=== PATIENT | female | born 1985 | race Caucasian/White ===

== ENCOUNTER 2020-07-05 11:07 | Emergency (ER) | payer OTHER ==
[2020-07-05 11:21] VITALS: BP 134/81; PULSE 91; TEMP 97.4; BMI 26.2
--- NOTE | 2020-07-05 11:53 | PDOC ---
History of Present Illness - General Chief Complaint: Pain Stated Complaint: PAIN Time Seen by Provider: 07/05/20 11:25 History Source: Patient Exam Limitations: No Limitations - History of Present Illness Initial Comments: 07/05/20 11:46 Patient is a 34-year-old female with no past medical history presents to the ED with complaint of left breast pain that has been ongoing for last 3 years. She states it has gotten much worse recently. She denies any drainage from her nipple. She denies any fevers or chills. She is not breast-feeding and denies currently being . She states she has never gotten this checked out in the past but the pain has become so bad so she came to the ED for evaluation. She denies any redness to the breast that she has noticed. She denies any allergies to medications. Past History - Medical History Allergies/Adverse Reactions: Allergies Allergy/AdvReac Type Severity Reaction Status Date / Time No Known Allergies Allergy Verified 07/05/20 11:16 Home Medications: Ambulatory Orders Ibuprofen [Motrin -] 600 mg PO TID PRN #21 tablet 07/05/20 COPD: No Other medical history: DENIES - Reproductive History Is Patient Now?: No - Psycho-Social/Smoking History Smoking History: Current every day smoker Information on smoking cessation initiated: No - Substance Abuse Hx (Audit-C & DAST Scrn) How often the patient has a drink containing alcohol: Never Score: In Men: 4 or > Positive; In Women: 3 or > Positive: 0 Screen Result (Pos requires Nsg. Audit-10AR): Negative In the last yr the pt used illegal drug/Rx for NonMed reason: No Score: Yes response is considered Positive: 0 Screen Result (Positive result requires Nsg. DAST-10): Negative Review of Systems - Review of Systems Comments:: 07/05/20 11:47 - Review of Systems Able to Perform ROS?: Yes Constitutional: No: Fever, Chills, Loss of Appetite, Night Sweats, Weakness HEENTM: No: Eye Pain, Vision changes, Ear Pain, Throat Pain, Throat Swelling, Mouth Pain, Difficulty Swallowing Respiratory: No: Cough, Shortness of Breath, Wheezing, Sputum Production Cardiac (ROS): No: Chest Pain, Chest Tightness, Palpitations, Irregular Heart Beat, Edema Breast: Left breast pain without discharge ABD/GI: No: Nausea, Vomiting, Abdominal Pain, Diarrhea : No Dysuria, No Hematuria, No Frequency, No Urgency Integumentary: No: Lesions, Rash Neurological: No: Headache, Numbness, Tingling, Weakness, Speech Difficulties *Physical Exam - Vital Signs Last Vital Signs Temp Pulse Resp BP Pulse Ox 97.4 F L 91 H 20 134/81 100 07/05/20 11:17 07/05/20 11:17 07/05/20 11:17 07/05/20 11:17 07/05/20 11:17 - Physical Exam 07/05/20 11:47 - Physical Exam General Appearance: Nourished, Appropriately Dressed, No Distress HEENT: EOMI, Normal Voice, Hearing Grossly Normal Neck: Supple, No Lymphadenopathy (R), No Lymphadenopathy (L), No Rigidity, No Decreased range of motion Respiratory/Chest: Lungs Clear, Normal Breath Sounds. No Respiratory Distress, No Accessory Muscle Use, no flail chest Cardiovascular: Regular Rhythm, Regular Rate, S1, S2 Breast: Left breast tenderness from ~2 o'clock to 5 o'clock region and enxtending into the axila. There is lateral rib tenderness in the anterior axillary line as well without any step-off, crepitus or ecchymosis. No drainage appreciated from the nipple. No cellulitis appreciated. Gastrointestinal/Abdominal: Normal Bowel Sounds, Soft. Non-tender, No Guarding, No Rebound, No Rigidity Musculoskeletal: Normal Inspection. No Decreased Range of Motion Extremity: Normal Capillary Refill, Normal Inspection Integumentary: Normal Color, Dry. No Rash Neurologic: tool and die repair II-XII NML intact, Fully Oriented, Alert, Normal Mood/Affect, Normal Response ED Treatment Course - RADIOLOGY Radiology Studies Ordered: Category Date Time Status BREAST US LEFT COMPLETE [US] Routine Ultrasound 07/05/20 11:35 Ordered Medical Decision Making - Medical Decision Making 07/05/20 11:53 Assessment: Patient is a 34-year-old female with left breast tenderness that has been ongoing for the last 3 years but worsening over the last several weeks. Plan: -Left breast ultrasound ordered -UA, urine ordered -Will reassess 07/05/20 12:19 Laboratory Tests 07/05/20 11:15 Urine Color Yellow Urine Appearance Cloudy Urine pH 5.5 Ur Specific [place] 1.026 Urine Protein Negative Urine Glucose (UA) Negative Urine Ketones Trace H Urine Blood 1+ H Urine Nitrite Negative Urine Bilirubin Negative Urine Urobilinogen 0.2 Ur Leukocyte Esterase Negative Urine WBC (Auto) 14 Urine Casts (Auto) 2 U Epithel Cells (Auto) >36 Urine Bacteria (Auto) 660 Urine HCG, Qual Negative The patient's ultrasound is negative for acute pathology. I have made the patient aware that her ultrasound is negative but we are unsure of the reason behind her breast pain. I have made her aware that she must follow-up with WEALTH MANAGEMENT DIRECTOR for further evaluation and treatment and likely an outpatient mammogram. The patient will be referred to WEALTH MANAGEMENT DIRECTOR. She understands and agrees with this treatment plan and she is stable for discharge. Discharge - Discharge Information Problems reviewed: Yes Clinical Impression/Diagnosis: Breast pain, left Condition: Stable Disposition: HOME - Additional Discharge Information Prescriptions: Ibuprofen [Motrin -] 600 mg PO TID PRN #21 tablet PRN Reason: Pain - Follow up/Referral Referrals: Adams Olvera MD [Staff Physician] - 1 week - Patient Discharge Instructions Patient Printed Discharge Instructions: DI for Breast Pain (Mastalgia) Additional Instructions: Your ultrasound was negative for any acute pathology. It is uncertain why you are continuing to have left breast pain but this must be further evaluated by an WEALTH MANAGEMENT DIRECTOR. There was no sign of infection or obvious mass on the ultrasound. You may require an outpatient mammogram but you must be reevaluated by WEALTH MANAGEMENT DIRECTOR. Take Motrin as needed for pain. Avoid any heavy lifting or strenuous activity. [place] ecografa fue negativa para cualquier patologa aguda. No se sabe por qu sigue teniendo dolor en el seno emeka, ryan un obstetra / gineclogo debe evaluarlo ms a fondo. No haba signos de infeccin o masa obvia en la ecografa. Es posible que necesite astrid mamografa ambulatoria, ryan debe ser reevaluada por un obstetra / gineclogo. [place] Motrin segn sea necesario para el dolor. Evite levantar objetos pesados ??o realizar actividades extenuantes. - Post Discharge Activity
[2020-07-05 11:58] LABS: EPI CELLS >36 /uL (0-25.1); HYALINE CASTS 2 /uL (0-3.1); PH,URINE 5.5 (5.0-8.0); URINE APPEARANCE CLOUDY; URINE BACTERIA 660 /uL (0-1359); URINE BILIRUBIN NEGATIVE (NEGATIVE); URINE COLOR YELLOW; URINE GLUCOSE (UA) NEGATIVE (NEGATIVE); URINE KETONE TRACE (NEGATIVE); URINE LEUK ESTERASE NEGATIVE (NEGATIVE); URINE NITRITE NEGATIVE (NEGATIVE); URINE PROTEIN NEGATIVE (NEGATIVE); URINE UROBILINOGEN 0.2 mg/dL (0.2-1.0); URINE WBC 14 /uL (0-25.8)
[2020-07-05 11:59] LABS: HCG,QUALITATIVE URINE Negative
[2020-07-05] MEDS ORDERED: IBUPROFEN 600 MG TABLET (FP) PO ONE ×2 (12:19→12:33)
[2020-07-05 12:54] LABS: URINE RBC 10 /uL (0-23.9); YEAST NON SEEN (NEGATIVE)
== END 2020-07-05 13:26 | disposition home or self-care (01) ==
LOC: JERFT 11:07
DX: N64.4 Mastodynia (principal)
CPT/HCPCS: 76641-TC-LT; 81003; 84703; 99284-25

== ENCOUNTER 2021-06-27 10:50 | Emergency (ER) | payer OTHER ==
[2021-06-27 11:32] VITALS: BP 112/71; PULSE 79; TEMP 98; BMI 28.3
[2021-06-27 12:26] LABS: PH,URINE 5.5 (5.0-8.0); URINE APPEARANCE CLEAR; URINE BILIRUBIN NEGATIVE (NEGATIVE); URINE COLOR YELLOW; URINE GLUCOSE (UA) NEGATIVE (NEGATIVE); URINE KETONE NEGATIVE (NEGATIVE); URINE LEUK ESTERASE NEGATIVE (NEGATIVE); URINE NITRITE NEGATIVE (NEGATIVE); URINE PROTEIN NEGATIVE (NEGATIVE); URINE UROBILINOGEN 0.2 mg/dL (0.2-1.0)
[2021-06-27 12:28] LABS: HCG,QUALITATIVE URINE Negative
== END 2021-06-27 14:20 | disposition home or self-care (01) ==
LOC: JER 10:50
DX: N83.201 Unspecified ovarian cyst, right side (principal)
CPT/HCPCS: 76830-TC; 81003; 84703; 87086; 99284-25

== ENCOUNTER 2022-08-17 20:49 | Emergency (ER) | payer OTHER ==
[2022-08-17 21:05] VITALS: BP 125/78; PULSE 66; RESP 19; TEMP 98.4; BMI 30.1
[2022-08-17] MEDS ORDERED: ACETAMINOPHEN 500 MG TABLET (FP) PO ONE (21:33)
[2022-08-17] MEDS ORDERED: IBUPROFEN 600 MG TABLET (FP) PO ONE ×2 (21:33→21:35)
[2022-08-17] MEDS ORDERED: ACETAMINOPHEN 500 MG TABLET (FP) ONE (21:36)
== END 2022-08-17 23:11 | disposition home or self-care (01) ==
LOC: JER 20:49
DX: R51.9 Headache, unspecified (principal); R09.81 Nasal congestion
CPT/HCPCS: 0241U-QW; 71046-TC-FY; 99284-25

== ENCOUNTER 2024-06-12 20:36 | Emergency (ER) | payer OTHER ==
[2024-06-12 20:41] VITALS: BP 117/78; PULSE 82; RESP 18; TEMP 97.5; BMI 28.0
[2024-06-12] MEDS ORDERED: morphine SULFATE 4 MG/ML VIAL ONE (22:21)
[2024-06-12] MEDS ORDERED: ONDANSETRON 4 MG/2 ML VIAL ONE (22:22)
[2024-06-12 22:56] LABS: BASO % 0.3 % (0-2.0); EOS % 3.6 % (0-4.5); HEMATOCRIT 41.2 % (32.4-45.2); HEMOGLOBIN 14.1 GM/dL (10.7-15.3); LYMPH % 20.6 % (8-40); MCH 31.8 pg (25.7-33.7); MCHC 34.2 g/dl (32.0-36.0); MEAN CELL VOLUME 93.1 fl (80-96); MEAN PLT VOLUME 7.4 fl (7.5-11.1); MONO % 7.5 % (3.8-10.2); PLATELET COUNT 267 10^3/uL (134-434); RBC 4.43 M/mm3 (3.60-5.2); RDW 13.5 % (11.6-15.6)
[2024-06-12] MEDS: ONDANSETRON 4 MG/2 ML VIAL IVPUSH ONE (23:05)
[2024-06-12] MEDS: morphine CARPU-JECT 4 MG/1 ML DISP.SYRIN IVPUSH ONE (23:05)
[2024-06-12 23:17] LABS: CALCIUM 9.1 mg/dL (8.5-10.1)
[2024-06-12 23:18] LABS: ALBUMIN 3.7 g/dl (3.4-5.0); BLOOD UREA NITROGEN 15.6 mg/dL (7-18)
[2024-06-12 23:21] LABS: CREATININE 0.8 mg/dL (0.55-1.3)
[2024-06-12 23:22] LABS: BILIRUBIN,TOTAL 0.5 mg/dL (0.2-1); TOT PROT 7.2 g/dl (6.4-8.2)
[2024-06-13 00:17] LABS: URINE APPEARANCE CLEAR; URINE BILIRUBIN 1+ (NEGATIVE); URINE COLOR DK YELLOW; URINE GLUCOSE (UA) NEGATIVE (NEGATIVE); URINE KETONE 2+ (NEGATIVE); URINE LEUK ESTERASE NEGATIVE (NEGATIVE); URINE NITRITE NEGATIVE (NEGATIVE); URINE PROTEIN TRACE (NEGATIVE)
[2024-06-13 00:20] LABS: HCG,QUALITATIVE URINE Negative
[2024-06-13] MEDS ORDERED: ACETAMINOPHEN INJECTION 100 ML IVPB ONE (01:10)
[2024-06-13] MEDS ORDERED: FAMOTIDINE 20 MG/50 ML IVPB 20 MG/50 ML MG IVPB ONE (01:10)
[2024-06-13] MEDS: ACETAMINOPHEN 1000 MG/100 ML BAG IVPB ONE (01:36)
[2024-06-13] MEDS: FAMOTIDINE 20 MG/50 ML IVPB 20 MG/50 ML MG IVPB ONE (01:37)
== END 2024-06-13 04:14 | disposition home or self-care (01) ==
LOC: JER 20:36
DX: R10.11 Right upper quadrant pain (principal); R11.0 Nausea; R19.7 Diarrhea, unspecified; R68.83 Chills (without fever)
CPT/HCPCS: 36415; 74177-TC; 76700-TC; 80053; 81003; 83690; 84703; 85025; 93005; 93010; 99285-25; J0131